=== PATIENT | male | born 1990 | race African-American/Black ===

== ENCOUNTER 2020-12-09 09:15 | Emergency (ER) | payer MEDICAID, OTHER ==
[~2020-12-09] VITALS: Ht 185.4 cm; Wt 150.6 kg
== END 2020-12-09 11:32 | disposition home or self-care (01) ==
LOC: ED 09:30
DX: U07.1 COVID-19 (principal); B34.9 Viral infection, unspecified
CPT/HCPCS: 99283; U0003; U0005